=== PATIENT | male | born 1980 | race Caucasian/White ===

== ENCOUNTER 2018-01-14 14:21 | Emergency (ER) | payer SELFPAY ==
[2018-01-14 15:10] LABS: APPEARANCE CLEAR (CLEAR); BILIRUBIN NEGATIVE (NEGATIVE); COLOR YELLOW (YELLOW); GLUCOSE NEGATIVE (NEGATIVE); KETONE NEGATIVE (NEGATIVE); NITRITE NEGATIVE (NEGATIVE); PROTEIN NEGATIVE (NEGATIVE); SPECIFIC GRAVITY 1.015 (1.005-1.020); UROBILINOGEN NORMAL (NORMAL)
== END 2018-01-14 17:21 | disposition left against medical advice (07) ==
LOC: D.ER 14:21
PROVIDERS: Emergency Medicine
DX: R10.30 Lower abdominal pain, unspecified (principal)